=== PATIENT | female | born 1985 | race Caucasian/White ===

== ENCOUNTER 2021-10-22 08:34 | Outpatient (REF) | payer BC, SELFPAY ==
--- NOTE | ~2021-10-22 | CT_ITS ---
EXAMINATION: CT CHEST WITH CONTRAST CLINICAL INFORMATION: Chest pain, shortness of breath and pleurisy. Evaluate for pleural effusion.. COMPARISON: Previous chest x-rays November 2020 and thoracic spine x-ray October 2021 TECHNIQUE: Multidetector volumetric CT imaging of the chest was obtained after the administration of 65 mL of Omnipaque 350 intravenous contrast without immediate adverse reactions. Axial MIP volume rendering provided. Sagittal and coronal reformatted images were obtained. This CT examination was performed using dose optimization techniques as appropriate, variously including the following: *Automated exposure control *Adjustment of mA and/or kV according to patient size (this includes techniques or standardized protocols for targeted exams where dose is matched to indication/reason for exam; i.e. extremities or head) *Use of iterative reconstruction technique DLP: 112 mGy-cm FINDINGS: INTELLIGENCE OPERATIONS: Unremarkable LUNGS: The lungs are clear with no evidence of inflammation or nodules. MEDIASTINUM: The mediastinum is normal. PLEURA: There is no pleural effusion. No pleural mass or thickening. AXILLA: No lymphadenopathy.. No chest wall mass. UPPER ABDOMEN: There is a 1.5 x 2 cm lesion high in the posterior segment of the right lobe of the liver. This demonstrates peripheral enhancement and may represent a hemangioma. OSSEOUS STRUCTURES: Unremarkable. CT/CT chest w con IMPRESSION: Probable 1.5 x 2 cm hemangioma in the right lobe of the liver. Otherwise unremarkable exam. Fleischner guidelines were followed.
[2021-10-22] MEDS: iohexoL 350 MG/ML 100 ML INFUS..BTL IV (09:34)
== END 2021-10-22 08:35 | disposition home or self-care (01) ==
LOC: HO.CT 08:34
PROVIDERS: Visit Provider Internal Medicine
DX: R07.9 Chest pain, unspecified (principal)
CPT/HCPCS: 71260; Q9967